=== PATIENT | male | born 2005 | race Two or more races ===

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

== ENCOUNTER 2025-01-05 14:09 | Emergency (ER) | payer BC, SELFPAY ==
[2025-01-05 14:10] VITALS: BP 120/88
--- NOTE | 2025-01-05 16:37 | ED.GENMED ---
History of Present Illness
General
Chief Complaint: Headache
Source: patient and family (mom)
Time Seen by Provider: 01/05/25 16:30
History of Present Illness
History of Present Illness:
19-year-old male presents to the emergency room complaining of head pressure,
Phy Exam
Physical Exam
Physical Exam:
General: Awake, Alert, Oriented X3. Mildly anxious but no acute distress.
Vitals: unremarkable
Head: Atraumatic
Eyes: Pupils equal, EOMI
Throat: Airway intact, no exudates
Neck: Trachea midline
Lungs: Clear and equal b/l
Heart: Regular rate, no murmurs
Abd: Soft, Nontender, No pulsatile mass
Neuro: Cranial nerves intact, muscle strength equal bilaterally, cerebellar exam normal
Skin: Warm, dry, no rash
Extremities: pulses equal b/l, no edema
Course
Orders/Labs/Results
Orders:
Orders
01/05/25 16:39
0.9% Sodium Chloride 500 ml [Nss] 500 ml IV BOLUS
Diphenhydramine [Benadryl] 25 mg IV NOW STA
Metoclopramide [Reglan] 10 mg IV NOW STA
01/05/25 17:05
Complete Blood Count/With Diff Urgent
Comprehensive Metabolic Panel Urgent
Magnesium Urgent
Phos [Phosphorus] Urgent
TSH Reflex To Free T4 Urgent
Abnormal Lab Results
01/05/25
17:05
Absolute Monos (auto) 0.7 H 10^3/uL
(0.1-0.6)
Glucose 111 H mg/dl
(70-99)
Phosphorus 5.3 H mg/dl
(2.5-4.5)
01/05/25 17:05
01/05/25 17:05
Vital Signs
Initial and Last Documented VS:
Initial Vital Signs
Temp Pulse Resp BP Pulse Ox
97.9 F 115 16 120/88 99
01/05/25 14:10 01/05/25 14:10 01/05/25 14:10 01/05/25 14:10 01/05/25 14:10
Last Documented Vital Signs
Temp Pulse Resp BP Pulse Ox
97.9 F 94 18 123/80 99
01/05/25 14:10 01/05/25 19:07 01/05/25 19:07 01/05/25 18:00 01/05/25 19:07
MDM/Problems Addressed
Differential Diagnosis Includes:
Headache, migraine headache, anxiety
MDM/Problems Addressed:
Patient has a nonfocal neurologic exam. Labs are drawn to exclude electrolyte abnormality that might cause him to have facial paresthesias. His phosphorus is mildly elevated would not explain his symptoms. Thyroid stimulating hormone is normal.
Patient felt better after IV Benadryl. He declined Reglan. Suspect the majority of his symptoms are related to anxiety. He is in the process of making an appointment with a therapist and a psychiatrist. Suggest he also speak to his primary care
provider about treatment. Patient stable for discharge and outpatient follow-up
*Pulse Oximetry
SaO2: 99
Oxygen Mode of Delivery: Room air
Patient hypoxic: no
*Critical Care Note
Total Time (30-74mins, 75-104mins- exclusive of procedures): Not Applicable
ED Attending Note
-
Portions of this chart may have been created with voice recognition software.� Occasional wrong word or��sound alike� substitutions may have occurred due to the inherent limitations of voice recognition software.
Discharge Plan
Departure
Patient Disposition: Home (Routine Discharge)
Date of Disposition: 01/05/25
Time of Disposition: 18:46
Patient with high blood pressure during this ER visit?: No
Condition: Good
Discharge Problem:
Headache
Instructions: Headache, Adult (DC)
Prescriptions:
No Action
ondansetron 4 mg tablet,disintegrating
4 mg PO Q8H PRN (Reason: nausea and vomiting) 3 Days Qty: 9 0RF
Referrals:
Valentina Lantigua MD [Non-Admitting Privileges, Psychiatry]
Rosana Alberto DO [Family Provider, Family Practice]
Interventions
Interventions:
*Risk Screen - Suicide Last Done: 01/05/25 14:12
*General Assessment Last Done: 01/05/25 17:40
*Neglect/Abuse Screening Last Done: 01/05/25 14:12
*ED- Fall Risk Assessment Last Done: 01/05/25 17:40
*ED COVID-19 Vaccine History Last Done: 01/05/25 19:07
*Nursing Disposition Last Done: 01/05/25 19:07
ED- Neurological Assessment Last Done: 01/05/25 17:40
Discharge Date and Time
Discharge Date/Time: 01/05/25 19:09
Print Language: [place]
[2025-01-05 16:55] VITALS: BMI 20.9
[2025-01-05 17:12] LABS: Hematocrit 43.9 % (39.0-52.0); Hemoglobin 15.5 g/dL (13.0-18.0); Mean Corp Hgb Conc. 35.3 g/dL (33.0-37.0); Mean Corpuscular Volume 87.5 fL (80.0-94.0); Nucleated Red Blood Cells % 0 % (-); Platelet Count 322 10^3/uL (130-400); Red Cell Dist. Width 12.4 % (11.5-14.5)
[2025-01-05] MEDS: BENADRYL 25 MG IV (17:15)
[2025-01-05] MEDS: NSS 500 IV (17:15)
[2025-01-05 17:28] VITALS: BP 127/90
[2025-01-05 17:33] LABS: ALT (SGPT) 22 U/L (0-50); AST (SGOT) 18 U/L (17-59); Albumin 4.7 g/dl (3.5-5.0); Alkaline Phosphatase 45 U/L (38-126); Blood Urea Nitrogen 11 mg/dl (9-20); Calcium 9.3 mg/dl (8.4-10.2); Carbon Dioxide 25 mmol/L (22-30); Chloride 104 mmol/L (98-107); Estimated Creatinine Clearance > 125 ml/min; Glucose 111 mg/dl (70-99); Magnesium 2.2 mg/dl (1.6-2.3); Potassium 4.0 mmol/L (3.5-5.1); Sodium 140 mmol/L (135-145); Total Protein 7.3 g/dl (6.3-8.2); eGFR > 60.00
[2025-01-05 18:00] VITALS: BP 123/80
== END 2025-01-05 19:09 | disposition home or self-care (01) ==
LOC: EMR 14:09
PROVIDERS: EMERGENCY PHYSICIAN Emergency Medicine; FAMILY PHYSICIAN Family Medicine
DX: R51.9 Headache, unspecified (principal)
CPT/HCPCS: 99283; 96374; 96375; 80053; 83735; 84100; 84443; 85025

== ENCOUNTER → 2025-05-30 16:11 | Outpatient (REF) | payer BC, SELFPAY | LOC: MRI 3T 16:11 | PROVIDERS: ATTENDING PHYSICIAN Psychiatry & Neurology Neurology | DX: G44.52 New daily persistent headache (NDPH) (principal) | CPT/HCPCS: 70553; A9575 ==